=== PATIENT | male | born 1990 | race Caucasian/White ===

== ENCOUNTER 2022-12-23 04:00 | Day surgery (SDC) | payer OTHER ==
[~2022-12-23] VITALS: Ht 182.9 cm; Wt 97.6 kg
[2022-12-23] VITALS (255 sets, daily range): BP systolic 82–143; BP diastolic 36–90
--- NOTE | 2022-12-23 06:35 | NUR ---
Patient arrived to the ANR suite with s/o and mother, identification and demographics confirmed. Patient to room 10, AAO, ambulatory, vitals obtained, ID/allergy/fall bands placed, changed into hospital gown, ARNIE hose, and non-slip socks. Procedure and timeline explained for treatment and discharge. All questions answered and the patient presents no concerns at this time.
--- NOTE | 2022-12-23 06:35 | NUR ---
PT ARRIVES WITH S/O AND MOTHER , SHAKING NOTED AND PT RELATES "I AM SCARED". INTRODUCED SELF TO PT AND FAMILY AND TAKEN BEDSIDE AND ORIENTED TO ROOM AND POC. ALL QUESTIONS ANSWERED. ALLOWED TIME FOR FAMILY INTERACTIONS.
--- NOTE | 2022-12-23 07:46 | NUR ---
Dr. Beltran telephoned with patient intake information including usage, dose, last dose/time taken and initial vital signs. Patient history and allergies reviewed with MD. Orders received for 15 mg PO Valium + 5 mg PRN for continued anxiety, and 0.3 mg PO Clonidine now. Will reassess per protocol in 1.5 hours and update MD with assessment and vitals.
--- NOTE | 2022-12-23 07:46 | NUR ---
0746 DR PARKS CALLED WITH UPDATE AND V/S , NEW ORDERS RECEIVED. 0755 MEDICATED WITH PO MEDS ORDERED.
--- NOTE | 2022-12-23 07:55 | NUR ---
Patient medicated per MD orders. In addition to Clonidine and Valium, patient received 1000 mcg B12 PO, 20 mg Pepcid PO, and Scopolamine TD patch. Medication indication and education provided prior to adminstration.
--- NOTE | 2022-12-23 08:14 | NUR ---
5 mg Valium given for a total of 15 mg initial administration.
--- NOTE | 2022-12-23 08:58 | NUR ---
Valium 5 mg PO PRN given for persistent restlesness and anxiety.
--- NOTE | 2022-12-23 09:30 | NUR ---
MD updated with 1.5 hour reassessment. Patient sleeping and vital signs are within pre-treatment parameters. No additional Clonidine or Valium at this time. Continuous monitoring in place.
--- NOTE | 2022-12-23 09:45 | NUR ---
Patient resting comfortably in bed. Easily aroused, maintains focus, and drifts back to sleep. No signs of active withdrawal or distress noted at this time. Patient reports significant relief of pre-medication anxiety. Continuous SPO2, rhythm, and respiratory monitoring initiated. IVF @ 250 mL/HR, room air, VSS.
--- NOTE | 2022-12-23 10:35 | NUR ---
Patient resting comfortably in bed. Easily aroused, maintains focus, and drifts back to sleep. No signs of withdrawal or distress noted at this time.
[2022-12-23 10:45] LABS: BASO% 0.2 % (0-3); EOS% 0.2 % (0-8); HEMATOCRIT 40.7 % (39.0-50.0); HEMOGLOBIN 13.3 g/dl (14.0-18.0); LYMPH% 15.7 % (15-41); MEAN CELL VOLUME 91.9 fL CALC (80.0-100.0); MEAN CORPUSCULAR HGB CONC 32.7 g/dL CAL (32.0-36.0); MONO% 6.8 % (2-13); NEUT# 6.93 thou/uL (1.82-7.42); NEUT% 77.1 % (42-76); RED BLOOD COUNT 4.43 mill/uL (4.70-6.10); RED CELL DISTRI WIDTH 13.1 % (11.5-15.5)
[2022-12-23 10:50] LABS: ALBUMIN 4.5 g/dL (3.2-5.0); ALKALINE PHOSPHATASE 226 u/l (38-126); ANION GAP 11 (6-22 (CALC)); BILIRUBIN, TOTAL 0.7 mg/dL (0.2-1.3); BUN 10 mg/dL (9-20); BUN/CREATININE RATIO 16 (12-20 (CALC)); CARBON DIOXIDE 27 mmol/l (22-30); CHLORIDE 101 mmol/l (95-108); CREATININE 0.6 mg/dL (0.7-1.3); GFR FOR AFR.AMER. > 60 ML/MIN (>=60 (CALC)); GFR OTHER RACES > 60 ML/MIN (>=60 (CALC)); POTASSIUM 4.3 mmol/l (3.5-5.1); SGOT/AST 65 u/l (17-59); SODIUM 135 mmol/l (137-146); TOTAL PROTEIN 7.5 g/dL (6.3-8.2)
--- NOTE | 2022-12-23 11:45 | NUR ---
Induction Note Time out performed at 1145. Patient placed on monitors, Ranjan hugger, bilateral wrist restraints applied for ET tube protection. Versed 5mg given IV push at 1145 Tourniquet applied to lt arm Lidocaine 100mg given at 1147 IV push followed by Rocoronium 10mg at 1147 IV push and held for 90 seconds. Propofol bolus of 200mg given at 1148 IV push. Succinylcholine 100mg given IV push at 1149. Smooth intubation with 7.5 ETT. Positive CO2. Positive Auscultation for air exchange. Patient placed on ventilator for spontaneous ventilation. Placed on Propofol IV drip at 1151. OG inserted. Positive air on auscultation. Positive gastric content. Stomach washed at this time. Naltrexone 50mg given via OG tube with Clonidine 0.1 mg given via OG Tube. OG clamped for 45 minutes. Will monitor patient for symptoms of withdrawal and adjust propfol accordingly.
--- NOTE | 2022-12-23 12:40 | NUR ---
OG close note Stomach washed at this time. Naltrexone 50 mg with Clonidine 0.1 mg via OG tube. OG will be clamped for 45 minutes.
--- NOTE | 2022-12-23 13:20 | NUR ---
OG open note OG open at this time. Gastric content draining into drainage bag. OG to drain for 45 minutes. Propofol will be titrated down based on patient.
--- NOTE | 2022-12-23 14:25 | NUR ---
OG close note Stomach washed at this time. Naltrexone 50 mg with Clonidine 0.2 mg via OG tube. OG will be clamped for 45 minutes.
[2022-12-23] MEDS ORDERED: CLONIDINE0.1 MG PO (15:18)
[2022-12-23] MEDS ORDERED: NALTREXONE50 MG PO (15:18)
[2022-12-23] MEDS ORDERED: KLONOPIN2 MG PO (15:19)
--- NOTE | 2022-12-23 16:20 | NUR ---
OG close note Stomach washed at this time. Naltrexone 50 mg with Clonidine 0.2 mg via OG tube. OG will be clamped for 45 minutes.
--- NOTE | 2022-12-23 16:25 | NUR ---
Patient resting comfortably in bed. Easily aroused, maintains focus, and drifts back to sleep. No signs of withdrawal or distress noted at this time.
--- NOTE | 2022-12-23 17:55 | NUR ---
OG close note Stomach washed at this time. Naltrexone 25 mg with Clonidine 0.3 mg via OG tube. OG will be clamped for 45 minutes.
--- NOTE | 2022-12-23 19:10 | NUR ---
Closing medications given Benadryl 50mg IV push, Decadron 10mg IV push,Magnesium 4 grams IV, Zofran 8mg IV push, Octreotide 100mcg SC. VALIUM 10MG VT, CLONIDINE 0.3MG VT. PROPOFOL TITRATED PER .
--- NOTE | 2022-12-23 19:43 | NUR ---
Extubation note Closing medications given Benadryl 50mg IV push, Decadron 10mg IV push,Magnesium 4 grams IV, Zofran 8mg IV push, Octreotide 100mcg SC. Stomach washed out prior to extubation. Suctioned gastric content. OG removed. Patient extubated. Propofol Discontinued. Wrist restraints removed. Ranjan hugger Removed. See ANR Moderate sedate recovery record for further notes and assessment.
--- NOTE | 2022-12-23 20:03 | NUR ---
Patient to room 284 in no acute distress. Transfer of care to Medical/Surgical ANR CINDI De Santiago at bedside. 2L NC placed per orders, IVF to continue at 100ml/hr. VSS. Patient resting comfortably, no adventitious breath sounds appreciated. Bed alarm set. See chart/EMAR for procedural details and assessments. Handoff of care at the time of this note.
--- NOTE | 2022-12-23 20:25 | NUR ---
RECEIVED PATIENT TO ROOM 284. BEDSIDE REPORT RECEIVED FROM CINDI SHERIFF. PATIENT RESTING. VSS. IVF'S INFUSING @ 100ML/HR. O2 @ 2L/NC. NO DISTRESS NOTED AT THIS TIME. BED IN LOW POSITION, ALARM ACTIVATED.
--- NOTE | 2022-12-23 21:23 | NUR ---
PATIENT C/O GENERALIZED PAIN A BURNING SENSATION 10/10, TORADOL IVP ADMINISTERED.
--- NOTE | 2022-12-24 00:21 | NUR ---
RESTING QUIETLY EYES CLOSED. NO DISTRESS NOTED AT THIS TIME. BED IN LOW POSITION; ALARM ACTIVATED. CALL LIGHT WITHIN REACH.
[2022-12-24 03:16] VITALS: BP 124/67
--- NOTE | 2022-12-24 04:30 | NUR ---
PATIENT AWAKE ALERT AND ORIENTED. NO DISTRESS NOTED. C/O FEELING BAD; CEMENT FINISHER APPRENTICE MEDS ADMINISTERED. A.M LABS OBTAINED AT THIS TIME. NO FURTHER CONCERNS EXPRESSED AT THIS TIME. CALL LIGHT WITHIN REACH.
[2022-12-24 05:26] LABS: BASO% 0.1 % (0-3); HEMOGLOBIN 12.5 g/dl (14.0-18.0); IMMATURE GRANULOCYTES 0.8 % (0.0-5.0); LYMPH% 8.2 % (15-41); MEAN CELL VOLUME 90.3 fL CALC (80.0-100.0); MEAN CORPUSCULAR HGB 29.7 pG CALC (26.0-32.0); MEAN CORPUSCULAR HGB CONC 32.9 g/dL CAL (32.0-36.0); MONO% 2.7 % (2-13); NEUT# 7.91 thou/uL (1.82-7.42); NEUT% 88.2 % (42-76); RED BLOOD COUNT 4.21 mill/uL (4.70-6.10); RED CELL DISTRI WIDTH 13.1 % (11.5-15.5)
[2022-12-24 05:46] LABS: ALKALINE PHOSPHATASE 231 u/l (38-126); ANION GAP 11 (6-22 (CALC)); BILIRUBIN, TOTAL 0.7 mg/dL (0.2-1.3); BUN 12 mg/dL (9-20); BUN/CREATININE RATIO 17 (12-20 (CALC)); CARBON DIOXIDE 26 mmol/l (22-30); CHLORIDE 103 mmol/l (95-108); CREATININE 0.7 mg/dL (0.7-1.3); GFR FOR AFR.AMER. > 60 ML/MIN (>=60 (CALC)); GFR OTHER RACES > 60 ML/MIN (>=60 (CALC)); MAGNESIUM 2.5 mg/dL (1.6-2.3); POTASSIUM 3.9 mmol/l (3.5-5.1); SGOT/AST 45 u/l (17-59); SODIUM 136 mmol/l (137-146)
--- NOTE | 2022-12-24 05:59 | NUR ---
PATIENT ANXIOUS AND TEARFUL. STATING "PLEASE CALL MY DOCTOR, I WANT TO GO AMA." WHEN ASKED WHY, PATIENT EXPLAINED HE FEELS THAT HE WOULD NOT BE ABLE TO COMPLETE TREATMENT IN FEAR OF HAVING PAIN AND SEEKING MEDS HE RECENTLY WERE DEPENDENT ON. PATIENT GIVEN ENCOURAGMENT AND REASSURED THAT THE ANR TEAM WILL BE WITH HIM DURING HIS JOURNEY. PATIENT STILL TEARFUL AND STATES HE'S REALLY ANXIOUS ABOUT HIS "NEW LIFE", ATIVAN ADMINISTERED TO HELP RELAX PATIENT.
--- NOTE | 2022-12-24 07:30 | NUR ---
PATIENT FEELS VERY ANXIOUS AND WANTS TO LEAVE AMA. I ASKED WHAT WAS WRONG AND HE SAYS HE JUST WANTS TO LEAVE THE HOSPITAL BECAUSE HE DOES NOT LIKE HOSPITALS. HE SEEMS TO BE RESTLESS. OFFERED PATIENT TO TALK A WALK IN THE HALLS. PATIENT WALKED ALONG WITH ME THE LENGTH OF THE [place] AND BACK TO HIS ROOM TO LAY DOWN PATIENT IS NOW SLEEPING IN BED. BED ALARM ON.
[2022-12-24 07:38] VITALS: BP 124/67
[2022-12-24 07:39] VITALS: BP 124/67
--- NOTE | 2022-12-24 08:10 | NUR ---
PT LAYING IN BED RESTING A&O X3, PT IS REQUESTING TO GO HOME, LUCIEN MADE AWARE AND SHE WILL BE UP TO SPEAK WITH PT. PT REDIRECTED AND MOVIE ON FOR PT. IV SITE TO ABD L FEMORAL IV, PATENT AND CLEAN. USING URINAL AT BEDSIDE. CALL LIGTH WITHIN REACH AND ALL SAFETY MEASURES IN PLACE.
--- NOTE | 2022-12-24 08:29 | NUR ---
PT LAYING IN BED, WALDEMAR MCGRAW DIRECTOR AT BEDSIDE. PT VOICES HE WANTS TO LEAVE BUT DISCUSSED WITH PT THE IMPORTANCE OF STAYING UNTIL D/C. PT MEDICATED FOR SLIGHT AGITATION PER ORDERS. WILL CONTINUE TO MONITOR PT. CALL LIGHT WITHIN REACH.
--- NOTE | 2022-12-24 12:00 | NUR ---
PT SITTING UP IN BED, RESTING OFF AND ON. PT A&OX3. PT HAS NO CHANGE IN STATUS AT THIS TIME. PT HAS CALL LIGHT WITHIN REACH AND SAFETY MEASURES IN PLACE.
--- NOTE | 2022-12-24 13:37 | NUR ---
PT LEFT AMDR. KASEY Mcdonough, HANNAHR DIRECTOR ADVISED. PT IV SITES REMOVED AND PT WAS GIVEN VERBAL INSTRUCTIONS ON MEDICATIONS AND FOLLOW UP
== END 2022-12-24 13:17 | disposition home or self-care (01) | DRG 897 ==
LOC: MS2 04:00 → ANR 04:00
PROVIDERS: ATTEND Anesthesiology Critical Care Medicine
DX: F11.20 Opioid dependence, uncomplicated (principal)
CPT/HCPCS: J2060; J2354; J3475